=== PATIENT | female | born 1995 | race Caucasian/White ===

== ENCOUNTER 2020-11-12 21:50 | Emergency (ER) | payer MEDICAID, SELFPAY ==
[2020-11-12 21:50] VITALS: BP 151/93; PULSE 94; RESP 18; TEMP 36.7; O2SAT 98; BMI 26.1
[2020-11-12 22:32] LABS: Bacteria 0 SEEN /hpf (None Seen); Mucous, Urine 0 SEEN /hpf (<or=2+); Red Blood Cells-Urine 0 SEEN /hpf (0-5)
[2020-11-12 22:38] LABS: Color, Urine Yellow (Yellow); Glucose, Dipstick Normal (Normal); Ketone-Dipstick Negative (Negative); Leukocyte Esterase-Dipstick 25 /ul (Negative); Nitrite-Dipstick Negative (Negative); Occult Blood-Urine Negative /ul (Negative); Protein-Dipstick Negative (Negative); Urine Bilirubin Dipstick Negative (Negative); Urine Clarity Clear (Clear); Urine Urobilinogen Normal (Normal)
[2020-11-12 22:44] LABS: Squamous Epithelial Cells - UA 0-5 SEEN /hpf (5-10); White Blood Cells 0-5 SEEN /hpf (0-5)
[2020-11-12] MEDS: Ketorolac 30 MG/ML Syringe IV (23:26)
[2020-11-12 23:41] LABS: Absolute Neutrophil Count 5.8 X10^3/uL (2.0-7.7); Basophil# 0.04 X10^3/uL; Basophil% 0.4 % (0-1); Eosinophil# 0.11 X10^3/uL; Eosinophils% 1.2 % (0-5); Hematocrit 41.2 % (37-47); Hemoglobin 13.5 g/dL (12.0-15.0); Lymphocyte % 28.5 % (19-41); Mean Corp Hgb Conc 32.8 g/dL (32-36); Mean Corpuscular Hgb 27.7 pg (27.0-32.0); Mean Corpuscular Volume 84.6 fL (81-99); Mean Platelet Vol. 9.4 fl (6.2-12.0); Monocyte# 0.54 X10^3/uL; Monocyte% 5.9 % (0-10); NRBC Flagged by Analyzer 0 % (0-5); Neutrophil # 5.83 X10^3/uL (2.7-7.7); Neutrophil % 63.9 % (47-70); Platelet Count 300 K/mm3 (150-450); RBC Distribution Width CV 11.9 % (11.6-14.6); RBC Distribution Width SD 35.8 fl (35.1-43.9); Red Blood Count 4.87 M/mm3 (4.2-5.4); White Blood Count 9.1 K/mm3 (4.4-11.0)
[2020-11-12 23:46] LABS: Internal QC Validated? YES +Cl - CLEAR BKGD; Pregnancy, Urine Negative Negative
[2020-11-12 23:52] LABS: Anion Gap 6 (5-15); BUN 7 mg/dL (7-18); BUN/Creat Ratio 9.6 RATIO (10-20); Calcium,Total 9.5 mg/dL (8.5-10.1); Chloride 104 mmol/L (98-107); Creatinine, Serum 0.73 mg/dL (0.55-1.02); EST Glomerular Filtration Rate 103 mL/min (>60); Est Glom Filt Rate - Afr Amer 125 mL/min (>60); Estimated Creatinine Clearance 101.73 ml/min; Glucose 92 mg/dL (74-106); Potassium 3.8 mmol/L (3.5-5.1); Sodium Level 137 mmol/L (136-145)
--- NOTE | 2020-11-13 01:00 | EX.ED.DYSGE1 ---
HPI History of Present Illness Chief Complaint: Abd Pain Informant: patient and family Onset/Context/Timing Onset: Yesterday Context: Gradual Onset Timing: Waxes and wanes Current Severity: Moderate Maximum Severity: Severe Narrative Narrative: Patient presents secondary to lower abdominal pain, worse on the left. Symptoms started last evening. Family states pain was bad enough tonight she was curled up on the floor. 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 Family also raises concern of strong family history of Marfan's syndrome with aortic dissections. [facility] Medical History Bicornate uterus Home Medications cholecalciferol (vitamin D3) 5,000 unit PO DAILY 12/22/14 [History Last Taken 06/03/15 21:30] fexofenadine-pseudoephedrine [Porsha-D 12 Hour] 1 ea PO DAILY PRN PRN 12/22/14 [History Last Taken 05/20/15] fluoxetine 10 mg PO DAILY 12/22/14 [History Last Taken 06/03/15 21:30] montelukast 10 mg PO DAILY 12/22/14 [History Last Taken 06/03/15 21:30] cholestyramine-aspartame [Cholestyramine Light] 0.5 pack PO DAILY 06/04/15 [History Last Taken 06/01/15 09:00] ondansetron [Zofran ODT] 8 mg PO Q8H PRN PRN #10 06/04/15 [Rx Last Taken 06/04/15 13:30] hydrocodone-acetaminophen 1 tab PO Q6H PRN 3 Days #10 tab 11/13/20 [Rx Last Taken Unknown] Allergy/AdvReac Type Severity Reaction Status Date / Time latex Allergy Anaphylaxis Verified 11/12/20 21:53 ENVIRONMENTAL Allergy Shortness Uncoded 11/12/20 21:53 of breath Surgical History History of hip surgery Social History Smoking Status: Never smoker ROS ROS ED Constitutional Constitutional ED: Denies chills or fever(s) Eyes Eyes: Denies change in vision ENT ENT ED: Denies sore throat Cardiovascular Cardiovascular: Denies chest pain Respiratory/Chest Respiratory/Chest: Denies cough or dyspnea Gastrointestinal Gastrointestinal: Reports abdominal pain; Denies diarrhea, nausea or vomiting Genitourinary Genitourinary ED: Denies dysuria Musculoskeletal Musculoskeletal: Denies back pain Integumentary Denies rash Neurologic Neurologic: Denies headache(s) or weakness Psychiatric Psychiatric: Denies anxiety or depression Endocrine Endocrinology: Denies polydipsia or polyuria Allergic/Immunologic Allergic/Immunologic ED: Denies urticaria EXAM Physical Exam Const Vital Signs: 11/12/20 21:50 11/13/20 01:12 Temperature 98.1 F Temperature Source Temporal Pulse Rate 94 88 Respiratory Rate 18 16 Blood Pressure 151/93 H 127/85 H Blood Pressure Mean 112 Pulse Ox 98 96 Oxygen Delivery Method Room Air Positive well nourished and well developed General Appearance ED: well developed HEENT Reports normocephalic and head/scalp atraumatic Eyes PERRL and EOMs intact bilaterally Neck supple Chest Wall inspection of chest normal and palpation of chest normal Resp normal respiratory effort and clear to auscultation bilaterally Cardio regular rate and regular rhythm GI Auscultation: hypoactive bowel sounds Palpation: soft and tender LLQ; Negative for guarding or rebound tenderness present Back/Spine no CVA tenderness Extremity normal to inspection Neuro oriented x3 and no sensory deficits noted Sensorium / Orientation: alert Motor Exam: strength 5/5 throughout Psych mental status grossly normal Skin no rashes or lesions noted MDM MDM MDM Narrative Medical decision making narrative: Patient is given Toradol for pain. Lab Data Attestation: I reviewed the patient's lab results. Labs: Laboratory Results - last 24 hr 11/12/20 11/12/20 11/12/20 22:20 23:26 23:26 WBC 9.1 RBC 4.87 Hgb 13.5 Hct 41.2 MCV 84.6 MCH 27.7 MCHC 32.8 RDW Std Deviation 35.8 RDW Coeff of Jeanette 11.9 Plt Count 300 MPV 9.4 Immature Gran % (Auto) 0.100 Neut % (Auto) 63.9 Lymph % (Auto) 28.5 [place] % (Auto) 5.9 Eos % (Auto) 1.2 Baso % (Auto) 0.4 Absolute Neuts (auto) 5.8 Absolute Lymphs (auto) 2.60 Nucleated RBC % 0 Sodium 137 Potassium 3.8 Chloride 104 Carbon Dioxide 27.0 Anion Gap 6 BUN 7 Creatinine 0.73 Estim Creat Clear Calc 101.73 Est GFR (MDRD) Af Amer 125 Est GFR (MDRD) Non-Af 103 BUN/Creatinine Ratio 9.6 L Glucose 92 Calcium 9.5 Urine Color Yellow Urine Clarity Clear Urine pH 7.0 Ur Specific [place] 1.010 Urine Protein Negative Urine Glucose (UA) Normal Urine Ketones Negative Urine Occult Blood Negative Urine Nitrite Negative Urine Bilirubin Negative Urine Urobilinogen Normal Ur Leukocyte Esterase 25 H Urine RBC 0 SEEN Urine WBC 0-5 SEEN Ur Squamous Epith Cells 0-5 SEEN Urine Bacteria 0 SEEN Urine Mucus 0 SEEN Urine Test 11/12/20 23:26 WBC RBC Hgb Hct MCV MCH MCHC RDW Std Deviation RDW Coeff of Jeanette Plt Count MPV Immature Gran % (Auto) Neut % (Auto) Lymph % (Auto) [place] % (Auto) Eos % (Auto) Baso % (Auto) Absolute Neuts (auto) Absolute Lymphs (auto) Nucleated RBC % Sodium Potassium Chloride Carbon Dioxide Anion Gap BUN Creatinine Estim Creat Clear Calc Est GFR (MDRD) Af Amer Est GFR (MDRD) Non-Af BUN/Creatinine Ratio Glucose Calcium Urine Color Urine Clarity Urine pH Ur Specific [place] Urine Protein Urine Glucose (UA) Urine Ketones Urine Occult Blood Urine Nitrite Urine Bilirubin Urine Urobilinogen Ur Leukocyte Esterase Urine RBC Urine WBC Ur Squamous Epith Cells Urine Bacteria Urine Mucus Urine Test Negative Radiography Diagnostic Testing: Radiology Impression Abdomen/Pelvis CTA 11/13/20 23:12 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 There is a complex appearance of the left ovary with probable cysts. There is a small amount of free fluid in the pelvis which is mildly complex could consider possible recently ruptured ovarian cyst. There is a feeding homogeneous appearance of the lower uterine segment of the right side uterus. Recommend correlation with history including beta hCG. Recommend consideration for follow-up pelvic ultrasound. Constipation. No appendicitis. No aneurysmal dilatation no dissection. Congenital absence of the right kidney. Compensatory hypertrophy of the left kidney without hydronephrosis. Electronically Signed: Marleny Cohen MD at 0:49 EDT Tel , Service support , Treatment and Re-Evaluation Comments:: Test results discussed with patient and family at bedside. She does appear to have a cyst in the left ovary along with evidence of a recently ruptured cyst. Patient is given a tab of [place] here with a prescription sent to the pharmacy for her. She will follow-up with her ACTIVITIES COUNSELOR. She is given return instructions. Discharge Plan Triage Chief Complaint: Abd Pain ED Provider: Martha Coats Dx/Rx/DC Orders Clinical Impression: Ovarian cyst Instructions: ED Ovarian Cyst Prescriptions: New hydrocodone-acetaminophen 5-325 mg tablet 1 tab PO Q6H PRN (Reason: pain) 3 Days Qty: 10 RF: 0 No Action fluoxetine 10 MG capsule 10 mg PO DAILY RF: 0 montelukast 10 MG tablet 10 mg PO DAILY RF: 0 fexofenadine-pseudoephedrine [Porsha-D 12 Hour] 1 EACH tablet extended release 12 hr 1 ea PO DAILY PRN PRN (Reason: SEASONAL ALLERGIES) RF: 0 cholecalciferol (vitamin D3) 5,000 UNIT capsule 5,000 unit PO DAILY RF: 0 cholestyramine-aspartame [Cholestyramine Light] 210 GM powder 0.5 pack PO DAILY RF: 0 ondansetron [Zofran ODT] 8 MG tablet,disintegrating 8 mg PO Q8H PRN PRN (Reason: Nausea and/or vomiting) Qty: 10 RF: 0 Primary Care Provider: Carie Ames Referrals: Carie Ames MD [Primary Care Provider] - Activity Restrictions/Additional Instructions: Follow-up with your UNDER PRESSER in 1-2 weeks Disposition Disposition: Home, self care Discharge Date/Time: 11/13/20 01:23
[2020-11-13 01:12] VITALS: BP 127/85; PULSE 88; RESP 16; O2SAT 96
[2020-11-13] MEDS: HYDROcodone Bitartrate/Apap 5/325 Tablet PO (01:20)
--- NOTE | 2020-11-13 23:12 | CT_ITS ---
STUDY: CT ANGIOGRAM ABDOMEN AND PELVIS WITH CONTRAST REASON FOR EXAM: Female, 24 years old. Abd pain, family hx marfans c dissection RADIATION DOSAGE (If Supplied By Facility): CTDIvol = ( 25.39 ) mGy, DLP = ( 752.46 ) mGycm. Individualized dose optimization techniques were used for this CT.? TECHNIQUE: Convex images of the abdomen and pelvis were obtained from the base of the lungs to the proximal femurs after the administration of 100 mL of Omnipaque 370. Sagittal and coronal reformatted images were performed. COMPARISON: None. FINDINGS: The aorta demonstrates a normal caliber and course in the abdomen. It measures 1.4 x 1.5 cm. There is no dissection. There is no calcific plaque formation. There is a normal takeoff of the celiac. There is a absent right kidney. There is compensatory hypertrophy of the left kidney which measures 12.12 x 7.4 cm. There is no visualized hydronephrosis. There are 2 left renal arteries. There is good visualization of the inferior mesenteric artery. The bilateral common iliac arteries are normal. There is no dissection no distention. The bilateral internal and external iliac arteries appear normal. The liver, spleen, pancreas, adrenal glands appear normal. The gallbladder is decompressed. The stomach, small bowel appear normal. There is moderate stool within the colon. There is a tortuous appearance of the distal colon with some redundancy. The appendix is well-demonstrated image #49 of the coronal views and is normal. Inferior vena cava appears normal. The bladder is partially distended. There are visualized engorged vessels within the pelvis. There is visualized free fluid within the pelvis. The fluid is complex. There are bilateral adnexal structures which are fairly symmetric with a high suggestion of a didelphys uterus. The bilateral uterine horns are basically by the bladder. These continue to the level of the cervix where there appear to be released to partially visualized endometrium towards the cervix. Based on this imaging it is uncertain whether the patient has 2 vaginas. There is a prominent appearance of the lower uterine segment on the right side with a small amount of fluid. There is a hypodense mixed density left adnexal mass measuring 2.1 x 3.2 cm. There is a right-sided adnexal mass measuring 3.6 x 2.7 cm both these may represent ovaries on each side of the uterus. There is a small focus of scarring in the left of midline subcutaneous soft tissue which may represent recent injection. The soft tissues and bony structures are grossly unremarkable. 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 There is a complex appearance of the left ovary with probable cysts. There is a small amount of free fluid in the pelvis which is mildly complex could consider possible recently ruptured ovarian cyst. There is a feeding homogeneous appearance of the lower uterine segment of the right side uterus. Recommend correlation with history including beta hCG. Recommend consideration for follow-up pelvic ultrasound. Constipation. No appendicitis. No aneurysmal dilatation no dissection. Congenital absence of the right kidney. Compensatory hypertrophy of the left kidney without hydronephrosis. Electronically Signed: Marleny Cohen MD at 0:49 EDT Tel , Service support ,
== END 2020-11-13 01:23 | disposition home or self-care (01) ==
PROVIDERS: Emergency Provider Emergency Medicine; PCP Internal Medicine
DX: N83.202 Unspecified ovarian cyst, left side (principal); K59.00 Constipation, unspecified; Q60.0 Renal agenesis, unilateral; Q51.28 Other and unspecified doubling of uterus
CPT/HCPCS: 74174; 80048; 81001; 81025; 85025; 99284; Q9967; A4216

== ENCOUNTER → 2022-01-21 | Outpatient (CLI) | payer OTHER, SELFPAY ==
--- NOTE | 2022-01-21 13:46 | US_ITS ---
STUDY: ULTRASOUND BREAST - RIGHT REASON FOR EXAM: Female, 26 years old. Right axillary lump. TECHNIQUE: Axial and longitudinal images of the RIGHT breast were performed with a high resolution ultrasound transducer. # OF IMAGES: [id number] COMPARISON: None. FINDINGS: RIGHT Breast: The right axillary region was examined by ultrasound. There is evidence of diffuse fatty tissue. No focal mass lesion is seen. US/Breast Limited Unilateral IMPRESSION: The palpable abnormality corresponds to diffuse fatty tissue. ASSESSMENT CATEGORY: BIRADS Category 2: Benign. A letter regarding these results will be sent to the patient by the facility within 30 days. Electronically Signed: Yon Clemens MD at 14:45 EDT ,
== END | disposition home or self-care (01) ==
LOC: OPUS 13:44
PROVIDERS: PCP Internal Medicine; Visit Provider Surgery
DX: N63.31 Unspecified lump in axillary tail of the right breast (principal)
CPT/HCPCS: 76642

== ENCOUNTER → 2022-09-09 | Outpatient (CLI) | payer OTHER, SELFPAY ==
[2022-09-09 20:20] LABS: Malaria QC Review PASSED
[2022-09-10 13:11] LABS: Malaria Blood Parasite Interp Negative (Negative)
== END | disposition home or self-care (01) ==
LOC: PAVLAB 15:30
PROVIDERS: PCP Internal Medicine; Referring Provider Internal Medicine; Visit Provider Internal Medicine
DX: Z11.6 Encounter for screening for other protozoal diseases and helminthiases (principal); Z91.89 Other specified personal risk factors, not elsewhere classified
CPT/HCPCS: 36415; 87207

== ENCOUNTER → 2024-04-20 | Outpatient (CLI) | payer OTHER, SELFPAY ==
[2024-04-20 12:45] LABS: Absolute Lymphocyte Count 2.07 X10^3/uL (0.83-4.51); Absolute Neutrophil Count 1.6 X10^3/uL (2.0-7.7); Basophil# 0.07 X10^3/uL; Basophil% 1.6 % (0-1); Eosinophils% 2.3 % (0-5); Hematocrit 42.1 % (37-47); Hemoglobin 14.2 g/dL (12.0-15.0); Lymphocyte # 2.07 X10^3/ul (0.83-4.51); Lymphocyte % 48.3 % (19-41); Mean Corp Hgb Conc 33.7 g/dL (32-36); Mean Corpuscular Hgb 28.5 pg (27.0-32.0); Mean Corpuscular Volume 84.5 fL (81-99); Mean Platelet Vol. 9.2 fl (6.2-12.0); Monocyte# 0.49 X10^3/uL; Monocyte% 11.4 % (0-10); NRBC Flagged by Analyzer 0 % (0-5); Neutrophil # 1.56 X10^3/uL (2.7-7.7); Neutrophil % 36.4 % (47-70); POSITIVE MORPHOLOGY YES; Platelet Count 296 K/mm3 (150-450); RBC Distribution Width CV 11.9 % (11.6-14.6); RBC Distribution Width SD 36.1 fl (35.1-43.9); Red Blood Count 4.98 M/mm3 (4.2-5.4); White Blood Count 4.3 K/mm3 (4.4-11.0)
[2024-04-20 12:47] LABS: Differential Indicated SCAN CRITERIA MET
[2024-04-20 13:09] LABS: ALB/GLOB Ratio 0.9 RATIO (0.9-2.4); AST(SGOT) 14 U/L (15-37); Alanine Aminotransfer ALT/SGPT 15 U/L (13-56); Albumin, Serum 3.7 g/dL (3.2-5.0); Alkaline Phosphatase 82 U/L (45-117); Anion Gap 3 (5-15); BUN 8 mg/dL (7-18); BUN/Creat Ratio 11.6 RATIO (10-20); Calcium,Total 9.1 mg/dL (8.5-10.1); Chloride 105 mmol/L (98-107); Cholesterol 246 mg/dL (200); Creatinine, Serum 0.69 mg/dL (0.55-1.02); EST Glomerular Filtration Rate 107 mL/min (>60); Est Glom Filt Rate - Afr Amer 130 mL/min (>60); Globulin 4.2 g/dL (2.2-4.2); Glucose 90 mg/dL (74-106); High Density Lipoprotein 37 mg/dL; Potassium 3.9 mmol/L (3.5-5.1); Protein, Total 7.9 g/dL (6.4-8.2); Sodium Level 136 mmol/L (136-145); Triglycerides 176 mg/dL; Very Low Density Lipoprotein 35 mg/dL (5-40)
[2024-04-20 13:34] LABS: Atypical Lymphocyte 1+ %; Differential Comment SCANNED
== END | disposition home or self-care (01) ==
PROVIDERS: PCP Internal Medicine; Referring Provider Internal Medicine; Visit Provider Internal Medicine
DX: Z00.00 Encounter for general adult medical examination without abnormal findings (principal)
CPT/HCPCS: 36415; 80053; 80061; 85025

== ENCOUNTER → 2024-10-26 | Outpatient (CLI) | payer OTHER, SELFPAY ==
[2024-10-30 13:14] LABS: HPV Reflexed? NOT INDICATED
== END | disposition home or self-care (01) ==
PROVIDERS: PCP Internal Medicine; Referring Provider Nurse Practitioner Family; Visit Provider Nurse Practitioner Family
DX: Z12.4 Encounter for screening for malignant neoplasm of cervix (principal)
CPT/HCPCS: 88175; G0145

== ENCOUNTER → 2025-02-28 | Outpatient (CLI) | payer OTHER, SELFPAY ==
[2025-03-02 04:07] LABS: QNTFERON TB Mitogen Value > 10.00 IU/mL (.); QNTFERON TB Nil Value 0.02 IU/mL (.); QNTFERON TB1+ Ag Value 0.02 IU/mL (.); QNTFERON TB2+ Ag Value 0.02 IU/mL (.); QNTIFERON TB Positive Criteria Negative (Negative)
== END | disposition home or self-care (01) ==
LOC: LAB 15:32
PROVIDERS: PCP Internal Medicine; Referring Provider Internal Medicine Infectious Disease; Visit Provider Internal Medicine Infectious Disease
DX: R76.11 Nonspecific reaction to tuberculin skin test without active tuberculosis (principal)
CPT/HCPCS: 36415; 86480

== ENCOUNTER → 2025-05-07 | Outpatient (CLI) | payer OTHER, SELFPAY ==
[2025-05-07 13:01] LABS: Hematocrit 39.9 % (37-47); Hemoglobin 13.4 g/dL (12.0-15.0); Immature Granulocytes Count 0.010 X10^3/uL (0.0-0.0); Mean Corp Hgb Conc 33.6 g/dL (32-36); Mean Corpuscular Volume 83.0 fL (81-99); Mean Platelet Vol. 9.2 fl (6.2-12.0); NRBC Flagged by Analyzer 0 % (0-5); Platelet Count 378 K/mm3 (150-450); RBC Distribution Width CV 12.6 % (11.6-14.6); RBC Distribution Width SD 38.5 fl (35.1-43.9); Red Blood Count 4.81 M/mm3 (4.2-5.4); White Blood Count 7.4 K/mm3 (4.4-11.0)
[2025-05-07 14:32] LABS: AST(SGOT) 22 U/L (<=31); Alanine Aminotransfer ALT/SGPT 17 U/L (<=34); Albumin, Serum 4.3 g/dL (3.5-5.0); Alkaline Phosphatase 85 U/L (35-104); Anion Gap 10 (5-15); Calcium,Total 9.5 mg/dL (7.6-11.0); Carbon Dioxide 24.2 mmol/L (21.0-32.0); Chloride 104 mmol/L (98-108); Potassium 3.9 mmol/L (3.3-5.1)
[2025-05-07 15:09] LABS: CRP 5.36 mg/L (0.0-3.0)
[2025-05-07 15:31] LABS: BUN 7 mg/dL (4-19); BUN/Creat Ratio 9.7 RATIO (10-20); Cholesterol 246 mg/dL (<=200); Ferritin 13 ng/mL (22-378); Free T3 3.0 pg/mL (2.18-3.98); Globulin 3.2 g/dL (2.2-4.2); Glucose 95 mg/dL (70-99); Low Density Lipoprotein Calc. 166 mg/dL; Triglycerides 190 mg/dL; Very Low Density Lipoprotein 38 mg/dL (5-40); cholesterol:hdl ratio screen 5.48
[2025-05-07 15:32] LABS: Iron 99 ug/dL (50-170)
[2025-05-08 10:08] LABS: ANTINUCLEAR ANTIBODIES DIRECT Negative (Negative)
== END | disposition home or self-care (01) ==
LOC: LAB 12:15
PROVIDERS: PCP Internal Medicine; Referring Provider Nurse Practitioner Family; Visit Provider Nurse Practitioner Family
DX: Z00.00 Encounter for general adult medical examination without abnormal findings (principal); K21.9 Gastro-esophageal reflux disease without esophagitis; N94.6 Dysmenorrhea, unspecified; R53.83 Other fatigue
CPT/HCPCS: 36415; 80053; 80061; 82728; 83540; 84439; 84443; 84481; 85025; 85652; 86038; 86140; 86225; 86431

== ENCOUNTER → 2025-07-02 | Outpatient (CLI) | payer OTHER, SELFPAY ==
[2025-07-02 10:04] LABS: Ferritin 18 ng/mL (22-378); Iron Binding Capacity,Total 353 ug/dL (250-450)
[2025-07-02 10:22] LABS: CRP 4.53 mg/L (0.0-3.0); Iron 61 ug/dL (50-170); Iron Binding Capacity,Unsat 292 ug/dL (228-428)
== END | disposition home or self-care (01) ==
LOC: LAB 08:13
PROVIDERS: PCP Internal Medicine; Referring Provider Nurse Practitioner Family; Visit Provider Nurse Practitioner Family
DX: R53.82 Chronic fatigue, unspecified (principal); N94.6 Dysmenorrhea, unspecified; F34.1 Dysthymic disorder
CPT/HCPCS: 36415; 82728; 83540; 83550; 86140